=== PATIENT | female | born 1970 | race Caucasian/White ===

== ENCOUNTER 2018-10-11 08:49 | Outpatient (CLI) | payer OTHER ==
--- NOTE | 2018-10-12 16:03 | Magnetic Resonance Report ---
BILATERAL BREAST MRI WITHOUT AND WITH CONTRAST: 10/11/18 08:49:00 CLINICAL: Right breast mass at 3 o'clock 3 cm from the nipple by ultrasound performed at [facility] 03/26/18 COMPARISON:No images available.. TECHNIQUE: Axial 1.0-mm T1 without, axial high resolution 2.0-mm T2 and axial 1.0-mm dynamic Vibrant high-resolution postcontrast T1 fat saturation sequences on a 1.5 [place] magnet. The examination was performed with an 8 channel dedicated [place] breast coil. Post processing with CAD and subtraction was performed on an [employer] workstation. 11.0 cc of Multihance was injected without incident for the contrast portion of the exam. Consent was obtained prior to the administration of the contrast. FINDINGS: Right: Mild background parenchymal enhancement. An irregular enhancing mass of the upper inner quadrant at 2 o'clock X. 0.5 cm from the nipple measures 1.3 x 1.2 x 0.7 cm. It demonstrates heterogeneous enhancement with mixed kinetics, 85% peak enhancement, 49% type I persistent, 48% type II plateau and 3% type III washout waveforms. No other mass or suspicious enhancement. No suspicious lymph nodes. Left: Mild background parenchymal enhancement. No mass or suspicious enhancement. No suspicious lymph nodes. IMPRESSION: A suspicious 1.3 cm right breast mass at 2 o'clock 6.5 cm from the nipple. This likely correlates with the ultrasound mass. Recommend ultrasound-guided needle biopsy. RIGHT BI-RADS 4 -- Suspicious LEFT BI-RADS 1 -- Negative
== END 2018-10-11 08:50 | disposition home or self-care (01) ==
LOC: SPVIMAG 08:49
PROVIDERS: ATTEND Obstetrics & Gynecology
DX: N60.11 Diffuse cystic mastopathy of right breast (principal)
CPT/HCPCS: A9577; C8908; 77049